=== PATIENT | female | born 1970 | race Hispanic/Latino ===

== ENCOUNTER 2023-02-25 16:56 | Emergency (ER) | payer OTHER, MEDICAID, MEDICARE | END 2023-02-25 17:39 | disposition home or self-care (01) | LOC: CSHERS 16:56 | DX: L03.811 Cellulitis of head [any part, except face] (principal); E11.9 Type 2 diabetes mellitus without complications; I10 Essential (primary) hypertension | CPT/HCPCS: 99283 ==